=== PATIENT | male | born 1955 | race Two or more races ===

== ENCOUNTER 2024-06-16 14:05 | Inpatient (IN) | payer MEDICARE, OTHER ==
[~2024-06-16] VITALS: Ht 177.8 cm; Wt 102.8 kg
[2024-06-16] VITALS (10 sets, daily range): BP systolic 115; BP diastolic 82; TEMP 97.4; O2SAT 78–92
[2024-06-16 14:37] LABS: VENOUS BASE EXCESS 1.8 (-2.0-2.0); VENOUS HCO3 33.9 MMOL/L (23.0-27.0); VENOUS O2 SATURATION 41.7 % (60.0-80.0); VENOUS PARTIAL PRESSURE CO2 87.9 mmHg (38.0-50.0); VENOUS PARTIAL PRESSURE O2 27.9 mmHg (30.0-50.0); VENOUS PH 7.204 UNITS (7.330-7.430); VENOUS STANDARD HCO3 24.2 MMOL/L; VENOUS TOTAL CO2 36.6 MMOL/L (24.0-28.0)
[2024-06-16] MEDS: methylPREDNISolone 125MG 2ML VIAL IV ONE (14:51)
[2024-06-16] MEDS: IPRATROPIUM 0.5MG/ALBUTEROL 2.5MG INH SOL UD 3ML NEB SCH (14:51)
[2024-06-16] MEDS: NS 0.9% IV ONE (14:53)
[2024-06-16] MEDS: [UNRECOGNIZED DRUG - OTHER] IV ONE (14:53)
[2024-06-16 15:05] LABS: ABG BASE EXCESS 0.7 (-2.0-2.0); ABG PARTIAL PRESSURE CO2 59.1 mmHg (35.0-45.0); ABG PARTIAL PRESSURE O2 84.3 mmHg (75.0-100.0); ABG TOTAL CO2 30.8 MMOL/L (23.0-31.0); ABG pH (ARTERIAL) 7.309 UNITS (7.350-7.450)
[2024-06-16 15:10] LABS: BASO % 0.3 % (0.0-1.0); EOS % 0.1 % (0.0-3.0); HEMATOCRIT 58.3 % (42.0-52.0); HEMOGLOBIN 17.9 g/dl (13.5-17.5); LYMPH # 0.8 10^3/uL (1.5-5.0); MEAN CORPUSCULAR HEMOGLOBIN 32.4 pg (27.0-33.0); MEAN CORPUSCULAR HGB CONC 30.7 g/dl (32.0-36.5); MEAN CORPUSCULAR VOLUME 105.6 fl (80.0-96.0); MONO % 11.2 % (2.0-8.0); NEUTROPHILS # 7.1 10^3/uL (1.5-8.5); PLATELET COUNT, AUTOMATED 125 10^3/uL (150-450); RED BLOOD COUNT 5.52 10^6/uL (4.30-6.10)
[2024-06-16] MEDS: cefTRIAXone SOD 2 GM in DEXTROSE 5% (D5W) ADV/MINI-BAG 50 ML IV ONE (15:18)
[2024-06-16 15:27] LABS: ALBUMIN 3.1 G/DL (3.2-5.2); BILIRUBIN,DIRECT 0.6 MG/DL (<0.4); BILIRUBIN,TOTAL 1.2 MG/DL (0.3-1.2); CALCIUM LEVEL 8.5 MG/DL (8.3-10.6); CREATININE FOR GFR 1.88 MG/DL (0.70-1.30); GLOMERULAR FILTRATION RATE 37.7 (>42); POTASSIUM SERUM 5.2 MMOL/L (3.5-5.1); TOTAL PROTEIN 6.4 G/DL (5.7-8.2)
[2024-06-16] MEDS ORDERED: ISOVUE-370 76% 100ML VIAL As Ordered ONE (16:35)
[2024-06-16] MEDS ORDERED: LEVALBUTEROL 1.25 MG 0.5ML CONCENTRATE NEB NEB SCH (17:20)
[2024-06-16] MEDS ORDERED: IPRATROPIUM 0.5MG/2.5ML (0.02%) SOLN NEB NEB SCH (17:20)
[2024-06-16] MEDS ORDERED: GLUCOSE 4 GM CHEW PO PRN (17:20)
[2024-06-16] MEDS ORDERED: GLUCAGON INJ 1MG VIAL SC PRN (17:20)
[2024-06-16] MEDS ORDERED: DEXTROSE 50% 50ML SYRINGE IV PRN (17:20)
[2024-06-16 17:21] LABS: PROCALCITONIN 0.22 ng/ml
[2024-06-16] MEDS ORDERED: ATOR1TAB21 PO (17:28)
[2024-06-16] MEDS ORDERED: TORS20TA2 PO (17:28)
[2024-06-16] MEDS ORDERED: XARE20TA PO (17:28)
[2024-06-16] MEDS ORDERED: METO1TAB33 PO (17:28)
[2024-06-16] MEDS ORDERED: INSULIN LISPRO (NovoLOG) PER UNIT SC SCH ×2 (17:30→21:00)
[2024-06-16] MEDS ORDERED: ASPI81TA26 PO (17:31)
[2024-06-16] MEDS ORDERED: HOME MED LIST COMPLETE! XX SCH (17:35)
[2024-06-16] MEDS: METOPROLOL TART 25 MG TABLET PO SCH (18:18)
[2024-06-16] MEDS: RIVAROXABAN 15MG TAB PO SCH (18:18)
[2024-06-16] MEDS: ERYTHROMYCIN OPHTH OINT OU SCH (18:18)
[2024-06-16] MEDS: METOPROLOL 5 MG/5 ML VIAL IV STA (18:19)
[2024-06-16] MEDS: HumuLIN R (REGULAR) INSULIN (NovoLIN R) **100U/ML** PER UNIT IV STA (18:20)
[2024-06-16] MEDS: DEXTROSE 50% 50ML SYRINGE IV STA (18:20)
[2024-06-16 18:37] LABS: HEMOGLOBIN A1c 5.8 % (4.0-6.0)
[2024-06-16] MEDS: BUDESONIDE 0.5 MG/2 ML INHALATION SUSPENSION NEB SCH (19:35)
[2024-06-16] MEDS: IPRATROPIUM 0.5MG/2.5ML (0.02%) SOLN NEB NEB SCH (19:35)
[2024-06-16] MEDS: FORMOTEROL FUMARATE 20 MCG/2 ML INHALATION SOLUTION INH SCH (19:35)
[2024-06-16] MEDS: LEVALBUTEROL 1.25 MG 0.5ML CONCENTRATE NEB NEB SCH (19:36)
[2024-06-16] MEDS: DOXYCYCLINE HYCLATE 100MG TABLET PO SCH (21:21)
[2024-06-16 22:07] LABS: CREATININE FOR GFR 1.61 MG/DL (0.70-1.30); GLOMERULAR FILTRATION RATE 45.4 (>42); POTASSIUM SERUM 5.4 MMOL/L (3.5-5.1)
[2024-06-16 22:44] LABS: ABG BASE EXCESS -4.1 (-2.0-2.0); ABG HCO3 28.8 MMOL/L (22.0-26.0); ABG PARTIAL PRESSURE O2 94.3 mmHg (75.0-100.0); ABG STANDARD HCO3 21.1 MMOL/L. (22.0-26.0); ABG TOTAL CO2 31.6 MMOL/L (23.0-31.0)
[2024-06-16 22:45] LABS: ABG PARTIAL PRESSURE CO2 89.4 mmHg (35.0-45.0); ABG pH (ARTERIAL) 7.126 UNITS (7.350-7.450)
[2024-06-16] MEDS: methylPREDNISolone 40MG 1ML VIAL IV SCH (23:21)
[2024-06-16] MEDS: PIPERACILLIN/TAZOBACTAM SOD 4.5 GM in DEXTROSE 5% (D5W) ADV/MINI-BAG 50 ML IV SCH (23:47)
[2024-06-16] MEDS: FUROSEMIDE 100MG/10ML VIAL IV ONE (23:47)
[2024-06-17] VITALS (109 sets, daily range): BP systolic 46–185; BP diastolic 27–85; TEMP 97.9–98.7; O2SAT 88–100
[2024-06-17] MEDS: IPRATROPIUM 0.5MG/ALBUTEROL 2.5MG INH SOL UD 3ML NEB SCH (00:49)
[2024-06-17 00:54] LABS: ABG BASE EXCESS -2.9 (-2.0-2.0); ABG HCO3 29.5 MMOL/L (22.0-26.0); ABG O2 SATURATION 98.3 % (95.0-99.0); ABG PARTIAL PRESSURE CO2 85.9 mmHg (35.0-45.0); ABG STANDARD HCO3 22.1 MMOL/L. (22.0-26.0); ABG TOTAL CO2 32.2 MMOL/L (23.0-31.0); ABG pH (ARTERIAL) 7.154 UNITS (7.350-7.450)
[2024-06-17] MEDS: METOPROLOL 5 MG/5 ML VIAL IV SCH (01:28)
[2024-06-17 01:47] LABS: HEMATOCRIT 59.6 % (42.0-52.0); HEMOGLOBIN 18.1 g/dl (13.5-17.5); MEAN CORPUSCULAR HEMOGLOBIN 31.9 pg (27.0-33.0); MEAN CORPUSCULAR HGB CONC 30.4 g/dl (32.0-36.5); MEAN CORPUSCULAR VOLUME 105.1 fl (80.0-96.0); PLATELET COUNT, AUTOMATED 116 10^3/uL (150-450); RED BLOOD COUNT 5.67 10^6/uL (4.30-6.10); WHITE BLOOD COUNT 10.9 10^3/uL (4.0-10.0)
[2024-06-17 02:07] LABS: CALCIUM LEVEL 8.2 MG/DL (8.3-10.6); CREATININE FOR GFR 1.74 MG/DL (0.70-1.30); GLOMERULAR FILTRATION RATE 41.4 (>42); POTASSIUM SERUM 5.9 MMOL/L (3.5-5.1)
[2024-06-17 02:42] LABS: ABG BASE EXCESS -2.5 (-2.0-2.0); ABG HCO3 31.4 MMOL/L (22.0-26.0); ABG O2 SATURATION 96.3 % (95.0-99.0); ABG PARTIAL PRESSURE O2 102.3 mmHg (75.0-100.0); ABG STANDARD HCO3 22.4 MMOL/L. (22.0-26.0); ABG TOTAL CO2 34.5 MMOL/L (23.0-31.0)
[2024-06-17 02:43] LABS: ABG PARTIAL PRESSURE CO2 99.5 mmHg (35.0-45.0); ABG pH (ARTERIAL) 7.117 UNITS (7.350-7.450)
[2024-06-17] MEDS: HumuLIN R (REGULAR) INSULIN (NovoLIN R) **100U/ML** PER UNIT IV STA (03:42)
[2024-06-17] MEDS: DEXTROSE 50% 50ML SYRINGE IV STA (03:42)
[2024-06-17] MEDS ORDERED: fentaNYL 100 MCG/2 ML INJECTION As Ordered ONE (04:51)
[2024-06-17] MEDS: SUCCINYLCHOLINE INJ 200MG/10ML VIAL IV STA (05:00)
[2024-06-17] MEDS ORDERED: FENTANYL DRIP LOCK BOX KEY 1 EACH XX PRN (05:00)
[2024-06-17] MEDS: OLANZapine INTRAMUSCULAR 10MG VIAL IM STA (05:25)
[2024-06-17] MEDS: propofoL 1,000 MG in IV 1 EA IV SCH (05:26)
[2024-06-17] MEDS: fentaNYL CITRATE/NaCl 1,000 MCG in IV 1 EA IV SCH (05:27)
[2024-06-17] MEDS: fentaNYL 100 MCG/2 ML INJECTION IV ONE ×2 (05:38→13:19)
[2024-06-17] MEDS: VASOPRESSIN IN 0.9 % NACL 20 UNIT in IV 1 EA IV SCH (05:58)
[2024-06-17] MEDS: NS (Normal Saline) 0.9% 1,000 ML IV ONE (05:58)
[2024-06-17] MEDS: NOREPINEPHRINE 4MG IN D5 250ML 4 MG in IV 1 EA IV SCH (06:00)
[2024-06-17] MEDS: NS (Normal Saline) 0.9% 1,000 ML IV SCH (06:00)
[2024-06-17] MEDS: MIDAZOLAM INJ 2MG/2ML VIAL IV ONE (06:15)
[2024-06-17 06:18] LABS: ABG BASE EXCESS 1.5 (-2.0-2.0); ABG HCO3 28.1 MMOL/L (22.0-26.0); ABG PARTIAL PRESSURE CO2 50.6 mmHg (35.0-45.0); ABG STANDARD HCO3 25.7 MMOL/L. (22.0-26.0); ABG TOTAL CO2 29.6 MMOL/L (23.0-31.0); ABG pH (ARTERIAL) 7.362 UNITS (7.350-7.450)
[2024-06-17] MEDS: propofoL 200 MG/20 ML VIAL IV ONE (06:26)
[2024-06-17] MEDS: ROCURONIUM BROMIDE 50MG/5ML VIAL IV ONE (06:27)
[2024-06-17 06:30] LABS: HEMATOCRIT 57.5 % (42.0-52.0); HEMOGLOBIN 17.9 g/dl (13.5-17.5); MEAN CORPUSCULAR HEMOGLOBIN 32.3 pg (27.0-33.0); MEAN CORPUSCULAR HGB CONC 31.1 g/dl (32.0-36.5); MEAN CORPUSCULAR VOLUME 103.6 fl (80.0-96.0); PLATELET COUNT, AUTOMATED 107 10^3/uL (150-450); RED BLOOD COUNT 5.55 10^6/uL (4.30-6.10); WHITE BLOOD COUNT 9.5 10^3/uL (4.0-10.0)
[2024-06-17 07:03] LABS: BILIRUBIN,TOTAL 1.1 MG/DL (0.3-1.2); CALCIUM LEVEL 8.3 MG/DL (8.3-10.6); CREATININE FOR GFR 1.77 MG/DL (0.70-1.30); GLOMERULAR FILTRATION RATE 40.6 (>42); POTASSIUM SERUM 5.5 MMOL/L (3.5-5.1); TOTAL PROTEIN 6.3 G/DL (5.7-8.2)
[2024-06-17 07:41] LABS: PROCALCITONIN 0.26 ng/ml
[2024-06-17 08:26] LABS: THYROID STIMULATING HORMONE 0.668 uIU/ML (0.55-4.78)
[2024-06-17 08:45] LABS: APPEARANCE, URINE CLEAR (CLEAR); BACTERIA, URINE AUTO 1+ (NEGATIVE); BILIRUBIN, URINE AUTO NEGATIVE (NEGATIVE); BLOOD, URINE BLOOD 1+ (NEGATIVE); COLOR, URINE STRAW (YELLOW); GLUCOSE, URINE (UA) AUTO NEGATIVE (NEGATIVE); KETONE, URINE AUTO NEGATIVE (NEGATIVE); LEUKOCYTE ESTERASE, URINE AUTO NEGATIVE (NEGATIVE); NITRITE, URINE AUTO NEGATIVE (NEGATIVE); PROTEIN, URINE AUTO NEGATIVE (NEGATIVE); RBC, URINE AUTO 4 /HPF (0-3); SQUAMOUS EPITHELIAL CELL UR AU 0 /HPF (0-6); UROBILINOGEN, URINE AUTO 0.2 mg/dL (0.0-2.0); WBC, URINE AUTO 1 /HPF (0-3)
[2024-06-17] MEDS ORDERED: cefTRIAXone SOD 1 GM in DEXTROSE 5% (D5W) ADV/MINI-BAG 50 ML IV SCH (09:00)
[2024-06-17] MEDS: ASPIRIN 81MG CHEW TABLET GT ONE (09:01)
[2024-06-17] MEDS: PANTOPRAZOLE 40MG VIAL IV SCH (09:01)
[2024-06-17] MEDS: THIAMINE 100 MG TAB GT SCH (09:01)
[2024-06-17] MEDS: SOD POLYSTYRENE SULFONATE SUSP 15GM 60ML UD PO ONE (09:01)
[2024-06-17] MEDS: DOXYCYCLINE HYCLATE 100 MG in DEXTROSE 5% (D5W) MINI-BAG PLU 100 ML IV SCH (10:47)
[2024-06-17 12:39] LABS: CALCIUM LEVEL 8.2 MG/DL (8.3-10.6); CREATININE FOR GFR 1.54 MG/DL (0.70-1.30); GLOMERULAR FILTRATION RATE 47.9 (>42); POTASSIUM SERUM 4.4 MMOL/L (3.5-5.1)
[2024-06-17] MEDS: METOPROLOL 5 MG/5 ML VIAL IV PRN (13:32)
[2024-06-17 15:19] LABS: VENOUS BASE EXCESS 4.7 (-2.0-2.0); VENOUS O2 SATURATION 91.3 % (60.0-80.0); VENOUS PARTIAL PRESSURE CO2 45.8 mmHg (38.0-50.0); VENOUS PARTIAL PRESSURE O2 59.4 mmHg (30.0-50.0); VENOUS PH 7.434 UNITS (7.330-7.430); VENOUS STANDARD HCO3 28.5 MMOL/L; VENOUS TOTAL CO2 31.4 MMOL/L (24.0-28.0)
[2024-06-17 18:23] LABS: CREATININE FOR GFR 1.49 MG/DL (0.70-1.30); GLOMERULAR FILTRATION RATE 49.9 (>42); POTASSIUM SERUM 4.4 MMOL/L (3.5-5.1)
[2024-06-17] MEDS: MIDAZOLAM INJ 2MG/2ML VIAL IV PRN (21:26)
[2024-06-18] VITALS (103 sets, daily range): BP systolic 94–127; BP diastolic 54–85; TEMP 97.7–98.8; O2SAT 94–100
[2024-06-18 05:03] LABS: HEMOGLOBIN 16.5 g/dl (13.5-17.5); MEAN CORPUSCULAR HEMOGLOBIN 31.9 pg (27.0-33.0); MEAN CORPUSCULAR HGB CONC 31.7 g/dl (32.0-36.5); MEAN CORPUSCULAR VOLUME 100.6 fl (80.0-96.0); PLATELET COUNT, AUTOMATED 126 10^3/uL (150-450); RED BLOOD COUNT 5.17 10^6/uL (4.30-6.10); WHITE BLOOD COUNT 11.8 10^3/uL (4.0-10.0)
[2024-06-18 05:32] LABS: ALBUMIN 2.7 G/DL (3.2-5.2); BILIRUBIN,TOTAL 1.1 MG/DL (0.3-1.2); CALCIUM LEVEL 8.3 MG/DL (8.3-10.6); CREATININE FOR GFR 1.39 MG/DL (0.70-1.30); GLOMERULAR FILTRATION RATE 54.2 (>42); MAGNESIUM LEVEL 2.6 MG/DL (1.8-2.4); PHOSPHORUS LEVEL 3.5 MG/DL (2.4-5.1); POTASSIUM SERUM 4.5 MMOL/L (3.5-5.1); TOTAL PROTEIN 5.7 G/DL (5.7-8.2)
[2024-06-18] MEDS: NICOTINE 21MG/24HR 1 EA TRANSDERMAL TD SCH (08:26)
[2024-06-18] MEDS: FUROSEMIDE 20MG/2ML VIAL IV ONE (08:26)
[2024-06-18] MEDS: ASPIRIN 81MG CHEW TABLET PEG SCH (08:27)
[2024-06-18] MEDS: METOPROLOL TART 25 MG TABLET PO SCH (08:29)
[2024-06-18 08:51] LABS: VENOUS BASE EXCESS 7.3 (-2.0-2.0); VENOUS HCO3 34.8 MMOL/L (23.0-27.0); VENOUS PARTIAL PRESSURE CO2 58.8 mmHg (38.0-50.0); VENOUS PARTIAL PRESSURE O2 66.2 mmHg (30.0-50.0); VENOUS TOTAL CO2 36.6 MMOL/L (24.0-28.0)
[2024-06-18] MEDS ORDERED: ASPIRIN 81MG ENTERIC TABLET PO SCH (09:00)
[2024-06-18 14:59] LABS: CALCIUM LEVEL 8.3 MG/DL (8.3-10.6); CREATININE FOR GFR 1.34 MG/DL (0.70-1.30); GLOMERULAR FILTRATION RATE 56.6 (>42); POTASSIUM SERUM 4.4 MMOL/L (3.5-5.1)
[2024-06-18] MEDS: FUROSEMIDE 40MG/4ML VIAL IV ONE (18:02)
[2024-06-19] VITALS (72 sets, daily range): BP systolic 87–136; BP diastolic 50–82; TEMP 97.8–100.2; O2SAT 88–99
[2024-06-19 04:31] LABS: HEMATOCRIT 51.6 % (42.0-52.0); HEMOGLOBIN 16.3 g/dl (13.5-17.5); MEAN CORPUSCULAR HEMOGLOBIN 32.4 pg (27.0-33.0); MEAN CORPUSCULAR HGB CONC 31.6 g/dl (32.0-36.5); MEAN CORPUSCULAR VOLUME 102.6 fl (80.0-96.0); RED BLOOD COUNT 5.03 10^6/uL (4.30-6.10); WHITE BLOOD COUNT 10.9 10^3/uL (4.0-10.0)
[2024-06-19 04:37] LABS: ALBUMIN 2.7 G/DL (3.2-5.2); CALCIUM LEVEL 8.3 MG/DL (8.3-10.6); CREATININE FOR GFR 1.42 MG/DL (0.70-1.30); GLOMERULAR FILTRATION RATE 52.8 (>42); MAGNESIUM LEVEL 2.4 MG/DL (1.8-2.4); PHOSPHORUS LEVEL 4.1 MG/DL (2.4-5.1); POTASSIUM SERUM 4.4 MMOL/L (3.5-5.1); TOTAL PROTEIN 5.7 G/DL (5.7-8.2)
[2024-06-19 04:53] LABS: PLATELET COUNT, AUTOMATED 98 10^3/uL (150-450)
[2024-06-19] MEDS: dexmedeTOMidine 200 MCG in IV 1 EA IV SCH (10:00)
[2024-06-19] MEDS ORDERED: ACETAMINOPHEN 325 MG TAB PO PRN (13:20)
[2024-06-19] MEDS: RIVAROXABAN 20MG TAB PO SCH (17:48)
[2024-06-20] VITALS (20 sets, daily range): BP systolic 102–134; BP diastolic 58–80; TEMP 97.6–100; O2SAT 87–99
[2024-06-20 04:11] LABS: BASO % 0.1 % (0.0-1.0); EOS % 0.1 % (0.0-3.0); HEMATOCRIT 52.4 % (42.0-52.0); HEMOGLOBIN 16.4 g/dl (13.5-17.5); LYMPH # 0.4 10^3/uL (1.5-5.0); LYMPH % 3.2 % (24.0-44.0); MEAN CORPUSCULAR HEMOGLOBIN 32.2 pg (27.0-33.0); MEAN CORPUSCULAR HGB CONC 31.3 g/dl (32.0-36.5); MEAN CORPUSCULAR VOLUME 102.7 fl (80.0-96.0); MONO # 1.3 10^3/uL (0.0-0.8); MONO % 9.3 % (2.0-8.0); NEUTROPHILS # 11.9 10^3/uL (1.5-8.5); NEUTROPHILS % 86.8 % (36.0-66.0); WHITE BLOOD COUNT 13.7 10^3/uL (4.0-10.0)
[2024-06-20 04:15] LABS: PLATELET COUNT, AUTOMATED 84 10^3/uL (150-450)
[2024-06-20 04:44] LABS: ALBUMIN 2.9 G/DL (3.2-5.2); BILIRUBIN,TOTAL 1.7 MG/DL (0.3-1.2); CALCIUM LEVEL 8.3 MG/DL (8.3-10.6); CREATININE FOR GFR 1.26 MG/DL (0.70-1.30); MAGNESIUM LEVEL 2.3 MG/DL (1.8-2.4); PHOSPHORUS LEVEL 4.1 MG/DL (2.4-5.1); POTASSIUM SERUM 4.5 MMOL/L (3.5-5.1); TOTAL PROTEIN 5.9 G/DL (5.7-8.2)
[2024-06-20] MEDS: methylPREDNISolone 40MG 1ML VIAL IV SCH (05:26)
[2024-06-20 07:30] LABS: VENOUS BASE EXCESS 2.8 (-2.0-2.0); VENOUS O2 SATURATION 88.2 % (60.0-80.0); VENOUS PARTIAL PRESSURE CO2 61.3 mmHg (38.0-50.0); VENOUS PARTIAL PRESSURE O2 57.2 mmHg (30.0-50.0); VENOUS PH 7.322 UNITS (7.330-7.430); VENOUS STANDARD HCO3 26.7 MMOL/L; VENOUS TOTAL CO2 32.9 MMOL/L (24.0-28.0)
[2024-06-20] MEDS: TORSEMIDE 20 MG TAB PO SCH (09:52)
[2024-06-20] MEDS: PIPERACILLIN/TAZOBACTAM SOD 4.5 GM in DEXTROSE 5% (D5W) ADV/MINI-BAG 50 ML IV SCH (16:36)
[2024-06-21] VITALS (8 sets, daily range): BP systolic 107–125; BP diastolic 56–72; TEMP 97.1–98.5; O2SAT 92–95
[2024-06-21 05:43] LABS: HEMATOCRIT 52.5 % (42.0-52.0); HEMOGLOBIN 16.2 g/dl (13.5-17.5); MEAN CORPUSCULAR HEMOGLOBIN 31.6 pg (27.0-33.0); MEAN CORPUSCULAR HGB CONC 30.9 g/dl (32.0-36.5); MEAN CORPUSCULAR VOLUME 102.5 fl (80.0-96.0); RED BLOOD COUNT 5.12 10^6/uL (4.30-6.10); WHITE BLOOD COUNT 11.6 10^3/uL (4.0-10.0)
[2024-06-21 05:44] LABS: PLATELET COUNT, AUTOMATED 69 10^3/uL (150-450)
[2024-06-21 06:17] LABS: ALBUMIN 2.7 G/DL (3.2-5.2); BILIRUBIN,TOTAL 1.5 MG/DL (0.3-1.2); CALCIUM LEVEL 8.1 MG/DL (8.3-10.6); CREATININE FOR GFR 1.17 MG/DL (0.70-1.30); GLOMERULAR FILTRATION RATE 66.7 (>42); PHOSPHORUS LEVEL 3.6 MG/DL (2.4-5.1); POTASSIUM SERUM 3.7 MMOL/L (3.5-5.1); TOTAL PROTEIN 5.5 G/DL (5.7-8.2)
[2024-06-21] MEDS ORDERED: MOM 30ML SUSPENSION UDC PO PRN (08:20)
[2024-06-21] MEDS: PANTOPRAZOLE 40MG TAB PO SCH (09:36)
[2024-06-21] MEDS: DOCUSATE SODIUM 100MG CAPSULE PO SCH (09:41)
[2024-06-21] MEDS: FUROSEMIDE 40MG/4ML VIAL IV SCH (09:42)
[2024-06-21] MEDS: LevoFLOXacin 500 MG TABLET PO SCH (09:52)
[2024-06-21] MEDS: SENNA 8.6 MG TAB PO SCH (20:23)
[2024-06-22 04:33] VITALS: BP 119/68; TEMP 97.2; O2SAT 96
[2024-06-22 05:28] LABS: HEMATOCRIT 52.8 % (42.0-52.0); HEMOGLOBIN 16.6 g/dl (13.5-17.5); MEAN CORPUSCULAR HEMOGLOBIN 31.6 pg (27.0-33.0); MEAN CORPUSCULAR HGB CONC 31.4 g/dl (32.0-36.5); MEAN CORPUSCULAR VOLUME 100.6 fl (80.0-96.0); RED BLOOD COUNT 5.25 10^6/uL (4.30-6.10); WHITE BLOOD COUNT 11.9 10^3/uL (4.0-10.0)
[2024-06-22 05:39] LABS: PLATELET COUNT, AUTOMATED 76 10^3/uL (150-450)
[2024-06-22 05:46] LABS: ALBUMIN 2.7 G/DL (3.2-5.2); ALKALINE PHOSPHATASE 87 U/L (40-129); ALT/SGPT 56 U/L (7.0-40); AST/SGOT 72 U/L (<34); BILIRUBIN,TOTAL 1.9 MG/DL (0.3-1.2); BLOOD UREA NITROGEN 32 MG/DL (9-23); CALCIUM LEVEL 8.4 MG/DL (8.3-10.6); CARBON DIOXIDE LEVEL 39 MMOL/L (20-31); CHLORIDE LEVEL 96 MMOL/L (98-107); CREATININE FOR GFR 0.84 MG/DL (0.70-1.30); GLOMERULAR FILTRATION RATE > 90.0 (>42); GLUCOSE, FASTING 84 MG/DL (74-106); POTASSIUM SERUM 3.6 MMOL/L (3.5-5.1); SODIUM LEVEL 140 MMOL/L (136-145); TOTAL PROTEIN 5.6 G/DL (5.7-8.2)
[2024-06-22 08:00] VITALS: BP 109/64; TEMP 97.6; O2SAT 93
[2024-06-22 12:21] VITALS: BP 117/72; TEMP 97.8; O2SAT 90
[2024-06-22 16:07] LABS: URINE STREP PNEUMONIAE ANTIGEN NOT DETECTED (NOT DETECT)
[2024-06-22 18:05] VITALS: BP 108/67; TEMP 97.1; O2SAT 93
[2024-06-22 20:17] VITALS: BP 111/65; TEMP 97.2; O2SAT 99
[2024-06-23] VITALS (24 sets, daily range): BP systolic 101–132; BP diastolic 58–72; PULSE 88–90; TEMP 96.9–98.1; O2SAT 86–99
[2024-06-23 04:26] LABS: HEMATOCRIT 49.3 % (42.0-52.0); MEAN CORPUSCULAR HEMOGLOBIN 32.5 pg (27.0-33.0); MEAN CORPUSCULAR HGB CONC 32.5 g/dl (32.0-36.5); PLATELET COUNT, AUTOMATED 90 10^3/uL (150-450); RED BLOOD COUNT 4.93 10^6/uL (4.30-6.10); WHITE BLOOD COUNT 12.3 10^3/uL (4.0-10.0)
[2024-06-23 04:43] LABS: ALBUMIN 2.6 G/DL (3.2-5.2); ALKALINE PHOSPHATASE 88 U/L (40-129); ALT/SGPT 59 U/L (7.0-40); AST/SGOT 62 U/L (<34); BILIRUBIN,TOTAL 1.7 MG/DL (0.3-1.2); BLOOD UREA NITROGEN 27 MG/DL (9-23); CALCIUM LEVEL 8.5 MG/DL (8.3-10.6); CARBON DIOXIDE LEVEL 37 MMOL/L (20-31); CHLORIDE LEVEL 96 MMOL/L (98-107); CREATININE FOR GFR 0.76 MG/DL (0.70-1.30); GLOMERULAR FILTRATION RATE > 90.0 (>42); GLUCOSE, FASTING 87 MG/DL (74-106); POTASSIUM SERUM 3.6 MMOL/L (3.5-5.1); SODIUM LEVEL 137 MMOL/L (136-145); TOTAL PROTEIN 5.1 G/DL (5.7-8.2)
[2024-06-23] MEDS: LevoFLOXacin 750 MG TABLET PO SCH (05:41)
[2024-06-23] MEDS: predniSONE 20 MG TAB PO SCH (09:09)
[2024-06-23 14:19] LABS: C REACTIVE PROTEIN QUANTITATIV 0.66 MG/DL (<1.0)
[2024-06-24 03:46] VITALS: BP 127/71; TEMP 96.9; O2SAT 95
[2024-06-24 06:29] LABS: BASO % 0.2 % (0.0-1.0); EOS # 0.3 10^3/uL (0.0-0.5); EOS % 2.5 % (0.0-3.0); HEMATOCRIT 49.7 % (42.0-52.0); HEMOGLOBIN 15.6 g/dl (13.5-17.5); LYMPH # 1.4 10^3/uL (1.5-5.0); LYMPH % 10.5 % (24.0-44.0); MEAN CORPUSCULAR HEMOGLOBIN 32.2 pg (27.0-33.0); MEAN CORPUSCULAR HGB CONC 31.4 g/dl (32.0-36.5); MEAN CORPUSCULAR VOLUME 102.7 fl (80.0-96.0); MONO # 1.1 10^3/uL (0.0-0.8); MONO % 8.3 % (2.0-8.0); NEUTROPHILS # 10.2 10^3/uL (1.5-8.5); PLATELET COUNT, AUTOMATED 115 10^3/uL (150-450); RED BLOOD COUNT 4.84 10^6/uL (4.30-6.10)
[2024-06-24 06:49] LABS: ALBUMIN 2.7 G/DL (3.2-5.2); ALKALINE PHOSPHATASE 86 U/L (40-129); ALT/SGPT 59 U/L (7.0-40); AST/SGOT 54 U/L (<34); BILIRUBIN,TOTAL 1.5 MG/DL (0.3-1.2); BLOOD UREA NITROGEN 23 MG/DL (9-23); CALCIUM LEVEL 8.6 MG/DL (8.3-10.6); CARBON DIOXIDE LEVEL 40 MMOL/L (20-31); CHLORIDE LEVEL 95 MMOL/L (98-107); CREATININE FOR GFR 0.79 MG/DL (0.70-1.30); GLOMERULAR FILTRATION RATE > 90.0 (>42); GLUCOSE, FASTING 80 MG/DL (74-106); POTASSIUM SERUM 3.7 MMOL/L (3.5-5.1); SODIUM LEVEL 139 MMOL/L (136-145); TOTAL PROTEIN 5.2 G/DL (5.7-8.2)
[2024-06-24 07:54] VITALS: BP 115/72; TEMP 96.9; O2SAT 93
[2024-06-24 09:45] VITALS: O2SAT 93
[2024-06-24] MEDS: BUMETANIDE 1 MG TAB PO SCH (09:58)
[2024-06-24] MEDS ORDERED: IPRA0.00 INH (11:26)
[2024-06-24] MEDS ORDERED: SENN18TA PO (11:26)
[2024-06-24] MEDS ORDERED: VENTAER INH (11:26)
[2024-06-24] MEDS ORDERED: METO1TAB87 PO (11:26)
[2024-06-24] MEDS ORDERED: ALBU8.5H INH (11:26)
[2024-06-24] MEDS ORDERED: COLA100C5 PO (11:26)
[2024-06-24] MEDS ORDERED: PRED20TA PO (11:26)
[2024-06-24] MEDS ORDERED: TORS20TA2 PO (11:26)
[2024-06-24] MEDS ORDERED: NICO21PAT TD (11:26)
[2024-06-24] MEDS ORDERED: SPIR1CAP INH (11:42)
[2024-06-24] MEDS ORDERED: SYMB16INH INH (11:42)
[2024-06-24 12:00] VITALS: BP 106/64
[2024-06-24 12:11] VITALS: BP 106/64; TEMP 97; O2SAT 92
[2024-06-24] MEDS ORDERED: ALBU2.5V10 NEB (14:05)
== END 2024-06-24 16:48 | disposition home health service (06) | DRG 871 ==
LOC: EDBD 14:05 → M ED 14:05 → M ED INP 17:16 → M PCU 20:20 → M ICU 23:09 → M PCU 06-20 18:12
PROVIDERS: ADMIT Internal Medicine; ATTEND Internal Medicine
PROC: 5A1945Z Respiratory Ventilation, 24-96 Consecutive Hours (ICD-10-PCS; principal; 2024-06-17)
PROC: 02HV33Z Insertion of Infusion Device into Superior Vena Cava, Percutaneous Approach (ICD-10-PCS; 2024-06-17)
PROC: 0BH17EZ Insertion of Endotracheal Airway into Trachea, Via Natural or Artificial Opening (ICD-10-PCS; 2024-06-17)
PROC: B246ZZZ Ultrasonography of Right and Left Heart (ICD-10-PCS; 2024-06-20)
DX: A41.9 Sepsis, unspecified organism (principal); J96.21 Acute and chronic respiratory failure with hypoxia; J96.22 Acute and chronic respiratory failure with hypercapnia; J15.69 Pneumonia due to other Gram-negative bacteria; I50.33 Acute on chronic diastolic (congestive) heart failure; J44.1 Chronic obstructive pulmonary disease with (acute) exacerbation; E87.20 Acidosis, unspecified; N17.9 Acute kidney failure, unspecified; J44.0 Chronic obstructive pulmonary disease with (acute) lower respiratory infection; J98.11 Atelectasis; J90 Pleural effusion, not elsewhere classified; I82.611 Acute embolism and thrombosis of superficial veins of right upper extremity; R65.20 Severe sepsis without septic shock; F17.210 Nicotine dependence, cigarettes, uncomplicated; E78.5 Hyperlipidemia, unspecified; I48.91 Unspecified atrial fibrillation; G47.33 Obstructive sleep apnea (adult) (pediatric); D75.1 Secondary polycythemia; E87.5 Hyperkalemia; R59.0 Localized enlarged lymph nodes; N18.9 Chronic kidney disease, unspecified; R74.01 Elevation of levels of liver transaminase levels; H10.9 Unspecified conjunctivitis; Z79.82 Long term (current) use of aspirin; Z79.01 Long term (current) use of anticoagulants; Z79.899 Other long term (current) drug therapy; Z95.2 Presence of prosthetic heart valve; R73.03 Prediabetes; D69.6 Thrombocytopenia, unspecified; E80.6 Other disorders of bilirubin metabolism; K74.60 Unspecified cirrhosis of liver; R33.9 Retention of urine, unspecified